=== PATIENT | female | born 1955 | race Hispanic/Latino ===

== ENCOUNTER 2017-10-04 06:27 | Emergency (ER) | payer BC, OTHER ==
[2017-10-04 06:53] VITALS: BMI 37.3
[2017-10-04 06:57] VITALS: O2SAT 98
--- NOTE | 2017-10-04 07:37 | ED PDOC ---
Arrival/HPI - General Chief Complaint: Chest Pain Time Seen by Provider: 10/04/17 07:13 Historian: Patient - History of Present Illness Narrative History of Present Illness (Text): 10/04/17 07:36 A 62 year old female, whose past medical history includes hypertension, presents to the emergency department complaining of chest heaviness for the past few days, worsening last night. Patient reports more discomfort with deep breaths. Notes shortness of breath this morning. Reports symptoms currently resolved. Patient has family history of open heart surgery and heart disease. Reports she quit smoking about ten years ago. Denies any fever, cough or any other complaints at this time. PMD: Jayson Bennett Time/Duration: < week Symptom Onset: Sudden Symptom Course: Unchanged Activities at Onset: Rest Context: Home Past Medical History - Provider Review Nursing Documentation Reviewed: Yes - Infectious Disease Hx of Infectious Diseases: None - Tetanus Immunization Tetanus Immunization: Unknown - Cardiac Hx Cardiac Disorders: Yes Hx Hypertension: Yes - Pulmonary Hx Respiratory Disorders: No - Neurological Hx Neurological Disorder: No - HEENT Hx HEENT Disorder: (WEARS RX GLASSES) - Hematological/Oncological Hx Blood Disorders: No - Integumentary Hx Dermatological Disorder: No - Musculoskeletal/Rheumatological Hx Musculoskeletal Disorders: (PLANTAR FASCITIS) - Gastrointestinal Hx Gastrointestinal Disorders: No - Genitourinary/Gynecological Hx Genitourinary Disorders: Yes (C SECTION X 1,2 D&C,LAPAROSCOPY) Hx Urinary Tract Infection: Yes - Psychiatric Hx Psychophysiologic Disorder: (SMOKED CIGARETTE-QUIT PPD) Hx Anxiety: Yes Hx Substance Use: No - Past Surgical History Past Surgical History: No Previous - Surgical History Hx Cardiac Catheterization: Yes - Suicidal Assessment Feels Threatened In Home Enviroment: No Family/Social History - Physician Review Nursing Documentation Reviewed: Yes Family/Social History: Other (nc) Smoking Status: Former Smoker Hx Alcohol Use: Yes (WINE 1-2 GLASSES EVERY NOW AND THEN) Hx Substance Use: No Allergies/Home Meds Allergies/Adverse Reactions: Allergies Penicillins Allergy (Verified 10/04/17 06:39) ANAPHYLAXIS Home Medications: Home Meds Medication Instructions Recorded Confirmed Atorvastatin [Lipitor] 20 mg PO DAILY 10/04/17 10/04/17 Bisoprolol/HCTZ [Ziac 10-6.25 mg] 1 tab PO DAILY 10/04/17 10/04/17 Valsartan/Hydrochlorothiazide 1 tab PO DAILY 10/04/17 10/04/17 [Diovan Hct 320-25 mg Tablet] amLODIPine [Norvasc] 5 mg PO DAILY 10/04/17 10/04/17 Review of Systems - Physician Review All systems were reviewed & negative as marked: Yes - Review of Systems Constitutional: absent: Fevers Respiratory: SOB. absent: Cough Cardiovascular: Other (chest heaviness) Physical Exam Vital Signs Reviewed: Yes Vital Signs Temp Pulse Resp BP Pulse Ox 10/04/17 06:57 98.1 F 69 17 149/87 98 Appearance: Positive for: Well-Appearing, Non-Toxic, Comfortable Pain Distress: None Mental Status: Positive for: Alert and Oriented X 3 - Systems Exam Head: Present: Atraumatic, Normocephalic Pupils: Present: PERRL Extroacular Muscles: Present: EOMI Conjunctiva: Present: Normal Mouth: Present: Moist Mucous Membranes Neck: Present: Normal Range of Motion Respiratory/Chest: Present: Clear to Auscultation, Good Air Exchange. No: Respiratory Distress, Accessory Muscle Use Cardiovascular: Present: Regular Rate and Rhythm, Normal S1, S2. No: Murmurs Abdomen: Present: Normal Bowel Sounds. No: Tenderness, Distention, Peritoneal Signs Back: Present: Normal Inspection Upper Extremity: Present: Normal Inspection. No: Cyanosis, Edema Lower Extremity: Present: Normal Inspection. No: Edema Neurological: Present: GCS=15, CN II-XII Intact, Speech Normal Skin: Present: Warm, Dry, Normal Color. No: Rashes Psychiatric: Present: Alert, Oriented x 3, Normal Insight, Normal Concentration Medical Decision Making ED Course and Treatment: 10/04/17 07:35 EKG: Ordered, reviewed, and independently interpreted the EKG. Rate : 71 BPM Rhythm : NSR Interpretation : normal intervals, normal axis, no acute ischemia 10/04/17 08:06 chest xray: No acute findings, as read by me. 10/04/17 09:[address] Bennett came and saw the pt and discharged her from the ED - Lab Interpretations Lab Results: 10/04/17 07:05 10/04/17 07:05 Lab Results 10/04/17 07:05: D-Dimer, Quantitative 237 10/04/17 07:05: Sodium 140, Potassium 4.1, Chloride 103, Carbon Dioxide 26, Anion Gap 15, BUN 20, Creatinine 0.8, Est GFR ( Amer) > 60, Est GFR (Non- Af Amer) > 60, Random Glucose 135 H, Calcium 10.5, Total Bilirubin 0.5, AST 49 H , ALT 54, Alkaline Phosphatase 58, Troponin I < 0.01, Total Protein 7.8, Albumin 4.4, Globulin 3.4, Albumin/Globulin Ratio 1.3 10/04/17 07:05: WBC 6.2, RBC 4.03, Hgb 12.9, Hct 38.8, MCV 96.3, MCH 32.0, MCHC 33.2, RDW 13.0, Plt Count 141, MPV 11.3 H, Gran % 59.5, Lymph % (Auto) 26.2, [place] % (Auto) 8.7 H, Eos % (Auto) 5.1 H, Baso % (Auto) 0.5, Gran # 3.70, Lymph # 1.6, [place] # 0.5, Eos # 0.3, Baso # 0.03 I have reviewed the lab results: Yes - RAD Interpretation Radiology Orders: 10/04/17 07:14 CHEST PORTABLE [RAD] Stat - EKG Interpretation Interpreted by ED Physician: Yes Type: 12 lead EKG - Scribe Statement The provider has reviewed the documentation as recorded by the Jorge A Singh Provider Scribe Attestation: All medical record entries made by the Scribe were at my direction and personally dictated by me. I have reviewed the chart and agree that the record accurately reflects my personal performance of the history, physical exam, medical decision making, and the department course for this patient. I have also personally directed, reviewed, and agree with the discharge instructions and disposition. Disposition/Present on Arrival - Present on Arrival Any Indicators Present on Arrival: No History of DVT/PE: No History of Uncontrolled Diabetes: No Urinary Catheter: No History of Decub. Ulcer: No History Surgical Site Infection Following: None - Disposition Have Diagnosis and Disposition been Completed?: Yes Diagnosis: Chest pain Disposition: HOME/ ROUTINE Disposition Time: 09:44 Patient Problems: Current Active Problems Problem Status Onset Chest pain Acute Condition: GOOD Discharge Instructions (ExitCare): Chest Pain (ED) Additional Instructions: Please follow up with your doctor. Return to the ER for any worsening symptoms or for any other concerns. Referrals: Jayson Bennett MD [Family Provider] - Follow up with primary Forms: [employer] (Georgian)
[2017-10-04 07:38] LABS: BASO # 0.03 K/mm3 (0.0-2.0); BASO % 0.5 % (0.0-3.0); EOS # 0.3 (0.0-0.7); EOS % 5.1 % (1.5-5.0); GRAN # 3.7 (1.4-6.5); GRAN % 59.5 % (50.0-68.0); HEMOGLOBIN 12.9 g/dL (12.0-16.0); LYMPH # 1.6 (1.2-3.4); LYMPH % 26.2 % (22.0-35.0); MEAN CELL VOLUME 96.3 fl (80.0-105.0); MEAN CORPUSCULAR HGB CONC 33.2 g/dl (31.0-37.0); MEAN PLATELET VOLUME 11.3 fl (7.0-11.0); MONO # 0.5 (0.1-0.6); MONO % 8.7 % (1.0-6.0); RBC 4.03 10^6/uL (3.5-6.1); WHITE BLOOD COUNT 6.2 10^3/ul (4.5-11.0)
[2017-10-04 07:47] LABS: ALB/GLOB RATIO 1.3 (1.1-1.8); ALBUMIN 4.4 g/dL (3.0-4.8); ALT/SGPT 54 U/L (7-56); AST/SGOT 49 U/L (14-36); BLOOD UREA NITROGEN 20 mg/dL (7-21); CALCIUM 10.5 mg/dL (8.4-10.5); GFR AFRICAN-AMERICAN > 60; GFR NON-AFRICAN AMERICAN > 60
[2017-10-04 07:58] LABS: TROPONIN I < 0.01 ng/mL
[2017-10-04 09:59] VITALS: BP 134/75; PULSE 85; RESP 19; TEMP 98
--- NOTE | 2017-10-04 15:32 | CARD ---
APPROVED REPORT EKG Measurement Heart [id number] <Conclusion> Normal sinus rhythm Normal ECG
--- NOTE | 2017-10-04 16:29 | RAD ---
HISTORY: cp COMPARISON: Comparison chest 11/24/2014. FINDINGS: LUNGS: No active pulmonary disease. PLEURA: No significant pleural effusion identified, no pneumothorax apparent. CARDIOVASCULAR: heart size within range of normal. / OSSEOUS STRUCTURES: No significant abnormalities. VISUALIZED UPPER ABDOMEN: Normal. OTHER FINDINGS: None. IMPRESSION: No active disease.
== END 2017-10-04 10:00 | disposition home or self-care (01) ==
LOC: ED 06:27
DX: R07.9 Chest pain, unspecified (principal); I10 Essential (primary) hypertension; Z87.891 Personal history of nicotine dependence